=== PATIENT | female | born 1940 | race Caucasian/White ===

== ENCOUNTER 2016-11-07 20:40 | Emergency (ER) | payer MEDICARE, OTHER ==
--- NOTE | ~2016-11-07 | CT71 ---
[facility] A Service of [facility] / [facility] RADIOLOGY TEXT RESULTS PATIENT: HILDA LOUIS LOCATION: [facility] : 38 UNIT #: [id number] AGE: [address]: Derek Mayer MD SEX: F ORDER DR: [id number] [facility] [address] [place] [place], [place] [address] [id number] E MR#: [id number] Acc #: [id number] NAME: HILDA LOUIS : 1940 SEX: F STUDY DATE/TIME: 11/07/2016 19:37 UNIT: [facility] ROOM: STUDY DESCRIPTION: CT Head Wo Contrast Attending Physician: Derek Mayer M.D. Ordering Physician: Derek Mayer M.D. Primary Care Physician: Santino Rivas M.D. MEDICAL IMAGING REPORT This report is preliminary unless electronic signature is present EXAM CT head without contrast INDICATION Blurred vision, multiple near syncopal episodes starting today. TECHNIQUE This CT exam was performed with one or more of the following radiation dose reduction techniques: automatic exposure control, adjustment of mA and/or kV according to patient size, and iterative reconstruction. Axial CT images were obtained from the vertex of the skull through the skull base. Intravenous contrast was administered. FINDINGS No acute intracranial hemorrhage is identified. 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 There is no midline shift or mass effect. I am not convinced I can see any focal areas of decreased attenuation. There is some mucosal thickening identified within the ethmoid sinuses. The remainder of the visualized paranasal sinuses and mastoid air cells appear clear. No focal soft tissue abnormalities are seen. IMPRESSION 1. No acute intracranial process is identified. Specifically, there is no evidence of acute hemorrhage, mass, lesion or acute infarct. 2. Rather advanced microangiopathic disease as described above. 3. Mild sinus inflammatory changes. Dictated by... Gladis Merino M.D. [facility] A Service [facility] RADIOLOGY TEXT RESULTS PATIENT: HILDA LOUIS LOCATION: [facility] #: [id number] : 38 UNIT #: [id number] AGE: [address]: Derek Mayer MD SEX: F ORDER DR: THIS IS AN ELECTRONICALLY VERIFIED REPORT Gladis Merino M.D. at 11/08/2016 10:41 AM AFF/sera TD: 11/07/2016 20:17 JOB #: [id number] MEDICAL IMAGING REPORT Page 1 of 1 COPY
--- NOTE | ~2016-11-07 | EKG ---
PATIENT: HILDA LOUIS UNIT #: [id number] Ventricular Rate: 72 BPM Atrial Rate: 72 BPM P-R Interval: 116 ms QRS Duration: 78 ms Q-T Interval: 386 ms QTC Calculation(Bezet): 422 ms P Mcpherson: 52 degrees Calculated R Mcpherson: 4 degrees Calculated T Mcpherson: 100 degrees Diagnosis Line: Normal sinus rhythm Diagnosis Line: Possible Inferior infarct , age undetermined Diagnosis Line: ST and T wave abnormality, consider lateral ischemia Diagnosis Line: Prolonged QT Diagnosis Line: Abnormal ECG Diagnosis Line: When compared with ECG of 26-MAY-2014 10:07, Diagnosis Line: Borderline criteria for Inferior infarct are now Diagnosis Line: Present Diagnosis Line: Confirmed by VALE BRAXTON, MAXWELL ([id number]) on 11/08/2016 Diagnosis Line: 5:06:34 AM INTERPRETING MD: VALE BRAXTON
[~2016-11-07 20:40] MED LIST: ASPIRIN; ASPIRIN81 MG PO; CERTAGEN PO; IMDUR-ER30 MG PO; METOPROLOL SUCC25 MG PO; NITROGYLCERIN; NITROSTAT0.4 MG SL; PRAVACHOL20 MG PO; PRAVASTATIN SOD40 MG PO; TOPROL XL PO; VITAMIN C PO; ZETIA
[2016-11-07 20:43] LABS: POC - CKMB <1.0 ng/mL (0.0-7.9); POC - TROPONIN <0.05 ng/mL (<=0.05)
[2016-11-07 21:01] LABS: URINE SOURCE CLEAN CATCH
[2016-11-07 21:06] LABS: URINE APPEARANCE CLEAR; URINE BILIRUBIN NEG (NEG); URINE BLOOD NEG (NEG); URINE COLOR YELLOW; URINE GLUCOSE NEG (NEG); URINE KETONE NEG (NEG); URINE LEUKOCYTE ESTERASE 3+ (NEG); URINE NITRATE NEG (NEG); URINE PH 6.5 (5-8); URINE PROTEIN NEG (NEG); URINE SPECIFIC GRAVITY 1.006 (1.003-1.035); URINE UROBILINOGEN 0.2 MG/DL (NEG)
[2016-11-07 21:09] LABS: CULTURE INDICATED? YES; URBCS1 AUWI 0-2 /[HPF] (0-2); URINE BACTERIA AUWI NEG (NEGATIVE); URINE SQUAMOUS EPITHELIAL CELL NONE SEEN /[HPF]
[2016-11-07 21:14] LABS: BASOPHIL% 0.4 % (0-2.5); EOSINOPHIL% 0.3 % (0.0-7.0); HEMATOCRIT 38.7 % (35.0-45.0); HEMOGLOBIN 12.8 gm/dL (12.0-16.0); LYMPHOCYTE# 1.7 X10e3 (1.0-3.5); LYMPHOCYTE% 18.3 % (17.0-45.0); MEAN CELL VOLUME 91.6 FL (83-96); MEAN CORPUSCULAR HEMOGLOBIN 30.3 PG (28-34); MEAN CORPUSCULAR HGB CONC 33.1 g/dL (30-36); MEAN PLATELET VOLUME 7.3 FL (6.5-11.5); MONOCYTE# 0.9 X10e3 (0-1.0); MONOCYTE% 9.4 % (3.0-12.0); NEUTROPHIL# 6.7 X10e3 (1.5-7.1); NEUTROPHIL% 71.6 % (40-75); PLATELET COUNT 359 X10e3 (140-420); RED BLOOD COUNT 4.22 X10e (3.90-5.30); WHITE BLOOD COUNT 9.4 X10e3 (4.0-10.5)
[2016-11-07 21:15] LABS: DIFF IND YES
[2016-11-07 21:31] LABS: ALBUMIN SERUM 3.4 g/dL (3.5-5.0); BILIRUBIN, DIRECT 0.1 mg/dL (0.0-0.2); BILIRUBIN,INDIRECT 0.6 mg/dL (0.0-0.9); BILIRUBIN,TOTAL 0.7 mg/dL (0.2-2.0); BUN/CREATININE RATIO 26.66; CREATININE SERUM 0.6 mg/dL (0.6-1.4); GLOM FILT RATE Estimated 87.9 mL/min (>60); PROTEIN TOTAL SERUM 6.1 g/dL (6.0-8.3)
[2016-11-07 21:42] LABS: ANISOCYTOSIS SL; PLATELET ESTIMATE NORMAL (NORMAL); STOMATOCYTE PRESENT
== END 2016-11-07 21:45 | disposition home or self-care (01) ==
LOC: CED 20:40
PROVIDERS: Emergency Medicine
DX: R55 Syncope and collapse (principal); R51 Headache; I25.10 Atherosclerotic heart disease of native coronary artery without angina pectoris; I10 Essential (primary) hypertension; E78.5 Hyperlipidemia, unspecified; F41.9 Anxiety disorder, unspecified; F32.9 Major depressive disorder, single episode, unspecified; Z79.82 Long term (current) use of aspirin; Z88.0 Allergy status to penicillin; Z88.5 Allergy status to narcotic agent; Z88.8 Allergy status to other drugs, medicaments and biological substances
CPT/HCPCS: 36415; 70450; 80048; 80076; 81003; 82553; 82947; 84484; 85025; 87086; 93005; 96360; 99284